=== PATIENT | male | born 1975 | race Caucasian/White ===

== ENCOUNTER 2017-12-07 20:24 | Emergency (ER) | payer MEDICARE ==
[~2017-12-07] VITALS: Ht 170.2 cm; Wt 65.0 kg
[~2017-12-07 20:24] MED LIST: ALBU1AER INH; CITA10TA4 PO; MONT10TA2 OR; PRED50 PO; ROBIDM5S PO; SIMV20TA PO; SYMB160A INH; VIST25CA PO
[2017-12-07 20:25] VITALS: BP 122/84; PULSE 100; RESP 16; TEMP 98.5; O2SAT 97
[2017-12-07] MEDS ORDERED: TUSSSUS2 PO (21:38)
[2017-12-07] MEDS ORDERED: NAPR250T4 PO (21:38)
[2017-12-07] MEDS ORDERED: SIMV20TA PO (21:38)
[2017-12-07] MEDS ORDERED: GUAISYP7 PO (21:38)
--- NOTE | 2017-12-07 21:44 | PD ---
HPI Chief Complaint: Cold / Flu Symptoms Time Seen by Provider: 21:20 Travel History International Travel<30 days: No Contact w/Intl Traveler<30days: No Traveled to known affect area: No History of Present Illness HPI Patient is a 42-year-old male presenting to the emergency department for evaluation of a cough, posttussive emesis, dizziness, and right lower back pain. Patient states the pain in his back has been present for 1 week, is in the right lower side. Pain is exacerbated with coughing. He does report a history of kidney stones, he denies any abdominal pain or dysuria. He has a history of seasonal allergies and chronic sinusitis, as well as asthma. He reports a chronic cough however for the last 2 days his symptoms have exacerbated. He vomited last night after coughing spell and again tonight at dinner. Family member is present with him and reports subjective low-grade fevers. Symptom onset was gradual, symptoms severity is moderate, there are no alleviating factors. Patient has been taking NyQuil, Robitussin DM and Tussionex. PFSH Past Medical History Arthritis: Yes (HANDS) Anxiety: Yes Depression: Yes Cardiac Catheterization: Yes (07/23 DR [facility]) High Cholesterol: Yes Chest Pain: Yes (ANXIETY) COPD: Yes Genitourinary: Yes Headaches: Yes Hypertension: Yes Kidney Stones: Yes Neurologic: Yes Psychiatric: Yes Migraines: Yes Seizures: Yes (POSSIBLE 1 YR AGO) Sleep Apnea: Yes Past Surgical History Cardiac Surgery: Yes (CATERIZED 2010 / CATH) Other Surgery: Yes (cleft palate , reconstructive sx) Family History Family Myocardial Infarction: Yes Social History Alcohol Use: No Tobacco Use: No Substance Use: No Allergies-Medications (Allergen,Severity, Reaction): Coded Allergies: penicillin G (Unverified Allergy, Mild, 12/07/17) codeine (Unverified Allergy, Unknown, 12/07/17) prochlorperazine (Unverified Allergy, Unknown, 12/07/17) Reported Meds & Prescriptions Reported Meds & Active Scripts Active Reported Naproxen 250 Mg Tab 250 Mg PO BID Tussionex Pennkinetic Ext 12 HR Liq (Hydrocodone-Chlorpheniramine 12 HR Liq) 10- 8 Mg/5 Ml Susp 5 Ml PO Q12H PRN Guaifenesin DM Liq (Guaifenesin-Dextromethorphan Liq) 10-100 Mg/5 Ml Liq 5 Ml PO Q4H PRN Simvastatin 20 Mg Tab 20 Mg PO HS Review of Systems Except as stated in HPI: all other systems reviewed are Neg General / Constitutional: Positive: Fever HENT: Positive: Vertigo, Rhinitis, Congestion, No: Headaches, Sore Throat Cardiovascular: No: Chest Pain or Discomfort Respiratory: Positive: Cough, No: Shortness of Breath, Wheezing, Hemoptysis, Pleuritic Pain Gastrointestinal: Positive: Vomiting, No: Nausea, Diarrhea, Abdominal Pain Genitourinary: No: Dysuria Musculoskeletal: Positive: Myalgias Neurologic: Positive: Dizziness Physical Exam Narrative GENERAL: Well-developed, well nourished, well-appearing male. Presenting in no acute distress. SKIN: Warm and dry. HEAD: Atraumatic. Normocephalic. EYES: Pupils equal and round. No scleral icterus. No injection or drainage. ENT: No nasal bleeding or discharge. Mucous membranes pink and moist. Cobblestone appearance posterior pharynx. NECK: Trachea midline. No JVD. CARDIOVASCULAR: Regular rate and rhythm. RESPIRATORY: No accessory muscle use. Clear to auscultation. Breath sounds equal bilaterally. GASTROINTESTINAL: Abdomen soft, non-tender, nondistended. Hepatic and splenic margins not palpable. MUSCULOSKELETAL: Extremities without clubbing, cyanosis, or edema. No obvious deformities. No CVAT bilaterally NEUROLOGICAL: Awake and alert. No obvious cranial nerve deficits. Motor grossly within normal limits. Five out of 5 muscle strength in the arms and legs. Normal speech. PSYCHIATRIC: Appropriate mood and affect; insight and judgment normal. Data Data Last Documented VS Vital Signs Date Time Temp Pulse Resp B/P (MAP) Pulse Ox O2 Delivery O2 Flow Rate FiO2 12/07/17 20:25 98.5 100 16 122/84 (97) 97 Room Air Orders Orders Chest, Pa & Lat (12/07/17 ) Urinalysis - C+S If Indicated (12/07/17 21:38) Complete Blood Count With Diff (12/07/17 21:45) Basic Metabolic Panel (Bmp) (12/07/17 21:45) Iv Access Insert/Monitor (12/07/17 21:45) Ecg Monitoring (12/07/17 21:45) Oximetry (12/07/17 21:45) Ondansetron Inj (Zofran Inj) (12/07/17 21:45) Sodium Chlor 0.9% 1000 Ml Inj (Ns 1000 M (12/07/17 21:45) Sodium Chloride 0.9% Flush (Ns Flush) (12/07/17 21:45) Labs Laboratory Tests Test 12/07/17 21:40 12/07/17 22:00 Urine Color YELLOW Urine Turbidity HAZY Urine pH 5.5 Urine Specific [place] 1.039 Urine Protein 100 mg/dL Urine Glucose (UA) NEG mg/dL Urine Ketones NEG mg/dL Urine Occult Blood TRACE Urine Nitrite NEG Urine Bilirubin NEG Urine Urobilinogen LESS THAN 2.0 MG/DL Urine Leukocyte Esterase NEG Urine RBC 1 /hpf Urine WBC 4 /hpf Urine Hyaline Casts 7 /lpf Urine Mucus MANY /lpf Microscopic Urinalysis Comment CULT NOT INDICATED White Blood Count 9.2 TH/MM3 Red Blood Count 5.30 MIL/MM3 Hemoglobin 15.7 GM/DL Hematocrit 44.9 % Mean Corpuscular Volume 84.7 FL Mean Corpuscular Hemoglobin 29.6 PG Mean Corpuscular Hemoglobin Concent 35.0 % Red Cell Distribution Width 13.8 % Platelet Count 225 TH/MM3 Mean Platelet Volume 9.8 FL Neutrophils (%) (Auto) 60.3 % Lymphocytes (%) (Auto) 23.9 % Monocytes (%) (Auto) 9.1 % Eosinophils (%) (Auto) 5.7 % Basophils (%) (Auto) 1.0 % Neutrophils # (Auto) 5.5 TH/MM3 Lymphocytes # (Auto) 2.2 TH/MM3 Monocytes # (Auto) 0.8 TH/MM3 Eosinophils # (Auto) 0.5 TH/MM3 Basophils # (Auto) 0.1 TH/MM3 CBC Comment DIFF FINAL Differential Comment Blood Urea Nitrogen 15 MG/DL Creatinine 1.24 MG/DL Random Glucose 75 MG/DL Calcium Level 9.6 MG/DL Sodium Level 140 MEQ/L Potassium Level 3.5 MEQ/L Chloride Level 102 MEQ/L Carbon Dioxide Level 31.0 MEQ/L Anion Gap 7 MEQ/L Estimat Glomerular Filtration Rate 64 ML/MIN MDM Medical Decision Making Medical Screen Exam Complete: Yes Emergency Medical Condition: Yes Interpretation(s) Last Impressions Chest X-Ray 12/07/17 0000 Signed Impressions: Service Date/Time: Thursday, December 07, 2017 21:51 - CONCLUSION: No acute cardiopulmonary abnormality is identified. Brenton Michelle MD Laboratory Tests Test 12/07/17 21:40 12/07/17 22:00 Urine Color YELLOW Urine Turbidity HAZY Urine pH 5.5 Urine Specific [place] 1.039 Urine Protein 100 mg/dL Urine Glucose (UA) NEG mg/dL Urine Ketones NEG mg/dL Urine Occult Blood TRACE Urine Nitrite NEG Urine Bilirubin NEG Urine Urobilinogen LESS THAN 2.0 MG/DL Urine Leukocyte Esterase NEG Urine RBC 1 /hpf Urine WBC 4 /hpf Urine Hyaline Casts 7 /lpf Urine Mucus MANY /lpf Microscopic Urinalysis Comment CULT NOT INDICATED White Blood Count 9.2 TH/MM3 Red Blood Count 5.30 MIL/MM3 Hemoglobin 15.7 GM/DL Hematocrit 44.9 % Mean Corpuscular Volume 84.7 FL Mean Corpuscular Hemoglobin 29.6 PG Mean Corpuscular Hemoglobin Concent 35.0 % Red Cell Distribution Width 13.8 % Platelet Count 225 TH/MM3 Mean Platelet Volume 9.8 FL Neutrophils (%) (Auto) 60.3 % Lymphocytes (%) (Auto) 23.9 % Monocytes (%) (Auto) 9.1 % Eosinophils (%) (Auto) 5.7 % Basophils (%) (Auto) 1.0 % Neutrophils # (Auto) 5.5 TH/MM3 Lymphocytes # (Auto) 2.2 TH/MM3 Monocytes # (Auto) 0.8 TH/MM3 Eosinophils # (Auto) 0.5 TH/MM3 Basophils # (Auto) 0.1 TH/MM3 CBC Comment DIFF FINAL Differential Comment Blood Urea Nitrogen 15 MG/DL Creatinine 1.24 MG/DL Random Glucose 75 MG/DL Calcium Level 9.6 MG/DL Sodium Level 140 MEQ/L Potassium Level 3.5 MEQ/L Chloride Level 102 MEQ/L Carbon Dioxide Level 31.0 MEQ/L Anion Gap 7 MEQ/L Estimat Glomerular Filtration Rate 64 ML/MIN Vital Signs Date Time Temp Pulse Resp B/P (MAP) Pulse Ox O2 Delivery O2 Flow Rate FiO2 12/07/17 20:25 98.5 100 16 122/84 (97) 97 Room Air Differential Diagnosis Bronchitis versus asthma exacerbation versus pneumonia versus electrolyte abnormality versus Narrative Course Patient is a 42-year-old male presenting for evaluation of cough, posttussive emesis, dizziness. Labs and imaging ordered and pending. Patient's vital signs are stable, he is afebrile. Labs reviewed, no acute findings identified. Urinalysis was assessed, it is not consistent with a urinary tract infection. Chest x-ray shows no acute disease. Patient's symptoms are likely related to an upper respiratory infection. Patient will be given prescriptions, he is encouraged to continue symptom management. He is encouraged to follow-up with primary care or at the [facility]. They were encouraged to return to emergency department for any new or worsening symptoms. Patient stable for discharge. Diagnosis Primary Impression: Upper respiratory infection Qualified Codes: J06.9 - Acute upper respiratory infection, unspecified Referrals: [facility] Primary Care Physician Patient Instructions: General Instructions, Upper Respiratory Infection (ED) Additional Instructions: Follow-up with a primary doctor or at the [facility] Continue symptom management as discussed Return to emergency department for any new or worsening symptoms Med/Other Pt SpecificInfo: Prescription(s) given Scripts Hydrocodone-Homatropine Liq (Hydrocodone-Homatropine Liq) 5-1.5 Mg/5 Ml Syrp 5 ML PO Q6H Y for COUGH, #120 ML 0 Refills Prov: Deedee Haque 12/07/17 Ipratropium Nasal (Ipratropium Nasal) 0.06% [place] 1 SPRAY EACH NARE QID, #1 BOTTLE 0 Refills Prov: Deedee Haque 12/07/17 Disposition: 01 DISCHARGE HOME Condition: Stable Deedee Haque Dec 07, 2017 21:44
[2017-12-07] MEDS ORDERED: ONDANSETRON HCL 4 MG/2 ML VIAL IV PUSH ONE (21:45)
[2017-12-07] MEDS ORDERED: SODIUM CHLOR 0.9% 1000 ML INJ 1,000 ML IV ONE (21:45)
[2017-12-07] MEDS ORDERED: SODIUM CHLORIDE 0.9% FLUSH 10 ML FLUSH IVF PRN (21:45)
--- NOTE | 2017-12-07 22:01 | RADRPT ---
EXAM DATE/TIME: 12/07/2017 21:51 [place] COMPARISON: No previous studies available for comparison. INDICATIONS : Cough. Nausea. MEDICAL HISTORY : None. SURGICAL HISTORY : None. ENCOUNTER: Initial ACUITY: 3 days PAIN SCORE: 7/10 LOCATION: Bilateral chest FINDINGS: PA and lateral views of the chest demonstrate a normal-sized cardiac silhouette. There is no effusion , consolidation, or pneumothorax. The bones and soft tissues demonstrate no acute abnormality. There is an azygous fissure. CONCLUSION: No acute cardiopulmonary abnormality is identified. Brenton Michelle MD on December 07, 2017 at 21:59 Board Certified Radiologist. This report was verified electronically.
[2017-12-07 22:43] LABS: BILIRUBIN, URINE NEG (NEG); BLOOD, URINE TRACE (NEG); GLUCOSE,URINE NEG (NEG); HYALINE CAST, URINE 7 /lpf (RARE); KETONE, URINE NEG (NEG); MUCUS URINE MANY /lpf (OCC); NITRITE,URINE NEG (NEG); PH, URINE 5.5 (5.0-8.5); URINE COLOR YELLOW (YELLW/STRAW); URINE LEUKOCYTE ESTERASE NEG (NEG)
[2017-12-07 22:47] LABS: AUTOMATED NEUTROPHIL # 5.5 TH/MM3 (1.8-7.7); BASOPHIL # 0.1 TH/MM3 (0-0.2); EOSINOPHIL # 0.5 TH/MM3 (0-0.4); EOSINOPHIL % 5.7 % (0.0-4.0); HEMATOCRIT 44.9 % (39.0-51.0); HEMOGLOBIN 15.7 GM/DL (13.0-17.0); LYMPH % 23.9 % (9.0-44.0); LYMPHOCYTE # 2.2 TH/MM3 (1.0-4.8); MEAN CELL VOLUME 84.7 FL (80.0-100.0); MEAN CORPUSCULAR HEMOGLOBIN 29.6 PG (27.0-34.0); MEAN PLATELET VOLUME 9.8 FL (7.0-11.0); MONO % 9.1 % (0.0-8.0); MONOCYTE # 0.8 TH/MM3 (0-0.9); NEUT % 60.3 % (16.0-70.0); PLATELET COUNT 225 TH/MM3 (150-450); RED CELL DISTRIBUTION WIDTH 13.8 % (11.6-17.2); WHITE BLOOD COUNT 9.2 TH/MM3 (4.0-11.0)
[2017-12-07 23:19] LABS: CALCIUM 9.6 MG/DL (8.5-10.1); CREATININE 1.24 MG/DL (0.60-1.30)
[2017-12-07] MEDS ORDERED: HYDR5SYP10 PO (23:37)
[2017-12-07] MEDS ORDERED: IPRA0.06 EACH NARE (23:37)
== END 2017-12-07 23:50 | disposition home or self-care (01) ==
LOC: NEPD 20:24
DX: J06.9 Acute upper respiratory infection, unspecified (principal); R42 Dizziness and giddiness; E78.00 Pure hypercholesterolemia, unspecified; J44.9 Chronic obstructive pulmonary disease, unspecified
CPT/HCPCS: 71046; 80048; 81001; 85025; 96360; 99284; J2405; J7030

== ENCOUNTER 2018-06-05 05:16 | Observation (INO) ==
[2018-06-05] MEDS ORDERED: Sod Chloride 0.9% Inj 1,000 ML IV.SIG ONE (05:44)
[2018-06-05 06:13] LABS: Baso # (Auto) 0.1 th/mm3 (0.0-0.2); Baso % (Auto) 0.8 % (0.0-2.0); Eos # (Auto) 0.4 th/mm3 (0.0-0.4); Eos % (Auto) 4.4 % (0.0-4.0); Hematocrit 41.6 % (39.0-51.0); Lymph # (Auto) 2.3 th/mm3 (1.0-4.8); Lymph % (Auto) 27.1 % (9.0-44.0); Mean Corpuscular HGB Conc 33.7 % (32.0-36.0); Mean Corpuscular Hemoglobin 28.7 pg (27.0-34.0); Mean Corpuscular Volume 85.2 fL (80.0-100.0); Mean Platelet Volume 9.6 fL (7.0-11.0); Mono # (Auto) 0.7 th/mm3 (0.0-0.9); Mono % (Auto) 8.2 % (0.0-8.0); Neut % (Auto) 59.5 % (16.0-70.0); Platelet Count 164 th/mm3 (150-450); Red Blood Count 4.88 mil/mm3 (4.50-5.90); Red Cell Distribution Width 14.3 % (11.6-17.2); White Blood Count 8.4 th/mm3 (4.0-11.0)
[2018-06-05 06:20] LABS: Alanine Aminotransferase 28 U/L (12-78); Albumin 3.9 g/dL (3.4-5.0); Anion Gap 10 meq/L (5-15); Aspartate Aminotransferase 14 U/L (15-37); Blood Urea Nitrogen 14 mg/dL (7-18); Calcium 9.1 mg/dL (8.5-10.1); Carbon Dioxide 26.5 meq/L (21.0-32.0); Chloride 105 meq/L (98-107); Glomerular Filtration Rate 69 mL/min (>89); Glucose,Random 119 mg/dL (74-106); Lipase 381 U/L (73-393); Potassium 3.2 meq/L (3.5-5.1); Sodium 141 meq/L (136-145)
[2018-06-05 06:22] LABS: Alkaline Phosphatase 117 U/L (45-117); Total Protein 7.5 g/dL (6.4-8.2)
[2018-06-05 06:32] LABS: Bacteria,Urine Rare /hpf; Bilirubin,Urine Negative (Negative); Clarity,Urine Clear (Clear); Color,Urine Yellow (Yellw/Straw); Glucose,Urine (UA) Negative (Negative); Leukocyte Esterase,Urine Negative (Negative); Mucus,Urine Few /lpf (Occasional); Nitrite,Urine Negative (Negative); Specific Gravity,Urine 1.014 (1.002-1.035)
--- NOTE | 2018-06-05 06:36 | CT ---
EXAM DATE: 06/05/2018 6:28 AM EDT AGE/SEX: 43 years / Male INDICATIONS: Headache for two days. CLINICAL DATA: This is the patient's initial encounter. Patient reports that signs and symptoms have been present for 2 days and indicates a pain score of 7/10. MEDICAL/SURGICAL HISTORY: Hypertension. None. RADIATION DOSE: 36.73 CTDI (mGy) COMPARISON: POI, CT BRAIN W/O CONTRAST, 12/30/2015. . TECHNIQUE: CT of the head without contrast. Using automated exposure control and adjustment of the mA and/or kV according to patient size, radiation dose was kept as low as reasonably achievable to ob tain optimal diagnostic quality images. DICOM format image data is available electronically for revi ew and comparison. FINDINGS: Cerebrum: The ventricles are normal for age. No evidence of midline shift, mass lesion, hemorrhage or acute infarction. No extraaxial fluid collections are seen. Posterior Fossa: The cerebellum and brainstem are intact. The 4th ventricle is midline. The cerebe llopontine angle is unremarkable. Extracranial: The visualized portion of the orbits is intact. Skull: The calvaria is intact. No evidence of skull fracture. CONCLUSION: 1. No acute intracranial abnormality. . Electronically signed by: Joel Austin MD 06/05/2018 6:35 AM EDT
--- NOTE | 2018-06-05 06:40 | ED ---
HPI General Chief Complaint: Abdominal Pain Stated Complaint: headache/n/v/d Time Seen by Provider: 06/05/18 05:48 Source: patient and family Mode of arrival: ambulatory Limitations: other (mental disability) History of Present Illness Complaint: headache Onset (ago): day(s) (few) Onset description: gradual Location: left and temporal Severity scale (1-10): 8 Quality: aching Relieving factors: nothing Exacerbating factors: none Context: other (History of hydrocephalus. He has undergone a craniotomy for the hydrocephalus. Sister warts that he nearly lost his vision because of the buildup of fluid in his brain.) Associated symptoms: nausea, vomiting and other (diarrhea) Related Data Home Medications Medication Instructions Recorded Confirmed [id number] 1 tab PO Q6H 06/05/18 06/05/18 montelukast 10 mg PO QPM 06/05/18 06/05/18 rosuvastatin 20 mg PO DAILY 06/05/18 06/05/18 trimethobenzamide 300 mg PO Q6H PRN 06/05/18 06/05/18 Allergies Allergy/AdvReac Type Severity Reaction Status Date / Time codeine Allergy Severe Anaphylaxis Verified 06/05/18 05:31 penicillin G Allergy Severe Anaphylaxis Verified 06/05/18 05:31 prochlorperazine Allergy Severe Anaphylaxis Verified 06/05/18 05:31 Review of Systems ROS: all other systems reviewed are negative [facility] Medical History Medical History [place] of tongue (Acute) COPD (chronic obstructive pulmonary disease) (Acute) Depression (Acute) HTN (hypertension) (Acute) Head ache (Acute) History of kidney stones (Acute) Hx of chest pain (Acute) Hx of corrected cleft lip and palate (Acute) Hyperlipidemia (Acute) Mental retardation (Acute) Normal colonoscopy (Acute) Sleep apnea with use of continuous positive airway pressure (CPAP) (Acute) Surgical History Surgical History H/O bone graft (Acute) H/O brain surgery (Acute) History of lingual frenulotomy (Acute) Family History Family History Other Diabetes mellitus Epilepsy Heart disease Lung cancer Osteoarthritis Stroke Social History Social History Substance History: No History of Abuse Second Hand Smoke Exposure: No Smoking Status: Never smoker How Often Do You Have a Drink Containing Alcohol: Monthly or less Recent Travel in [facility] within the Last 8 Weeks: No Recent Out of Country Travel within the Last 8 Weeks: No Immunization History Tetanus Immunization: <5 Years Tetanus Immunization Year if Known: 2016 Hx Influenza Vaccine This Season: No Exam Const General: cooperative, healthy appearing, comfortable, no acute distress, well developed and well groomed Orientation: alert, awake and oriented x3 [place]EN[place] Head: atraumatic and other (Healed surgical scars) Eyes Alignment and Position: alignment normal Conjunctivae: conjunctivae normal Sclera: sclerae normal EOM: EOM intact bilaterally Neck Neck: normal visual inspection and full ROM Chest Chest: normal inspection of the chest Resp Effort & Inspection: normal respiratory effort and able to speak in complete sentences Cardio Rate: regular rate Rhythm: regular rhythm Back/Spine/Pelvis Cervical Spine: cervical ROM normal Thoracic/Lumbar Spine: thoraco-lumbar ROM normal Skin General: no rashes or lesions noted, turgor normal and dry skin Neuro General: alert, awake, oriented x3, moves all extremities and CN's II-XI intact bilaterally Extrem General: normal to inspection and full ROM Psych Appearance: grossly normal Mental Status: mental status grossly normal Speech and Movement: speech and movement normal Mood: congruent mood Affect: normal affect Attitude: cooperative Thought Process: normal Thought Content: normal Judgment: judgment good Course Initial Documented Vital Signs Temperature 98.6 F 06/05/18 05:18 Pulse Rate 73 06/05/18 05:18 Respiratory Rate 18 06/05/18 05:18 Blood Pressure 144/91 H 06/05/18 05:18 Pulse Oximetry 98 06/05/18 05:18 Last Documented Vital Signs Temperature 98.0 F 06/05/18 14:45 Pulse Rate 68 06/05/18 14:45 Respiratory Rate 16 06/05/18 14:45 Blood Pressure 127/82 06/05/18 14:45 Pulse Oximetry 98 06/05/18 14:45 Sign Out Sign Out Data: Patient Sign Out occurred on 06/05/18 at 07:27. Patient's care was discussed, and care was transferred from Brook Garcia to Lamont Reyez MD. Sign Out Comment: This patient is signed out at 7 AM pending the results of his CT as well as response to treatment for headache associated with nausea and vomiting. Laboratory evaluation is negative. Last updated by Brook Garcia at 06/05/18 06:41 Post-Handoff Eval: Patient was signed to me at change of shift by Dr. Garcia. Initially, patient was awaiting CT results. At change of shift, the CT results were completed. CT results show no evidence of acute process. Dr. Garcia went into evaluate the patient and the patient was still having headache and was still nauseous and had another episode of vomiting. She is recommending that we admit the patient with a neuro consult. [facility]. Medical Decision Making MDM Narrative Medical decision making narrative: This is a patient who has had previous hydrocephalus status post craniotomy who presents with a chief complaint of headache associated with vomiting and diarrhea. He is neurologically intact. He is afebrile. His neck is supple. His headache will be treated with IV Reglan and Benadryl. CT of the head is pending as our baseline labs. Medical Screen Exam Complete: Yes Emergency Medical Condition: Yes Differential Diagnosis Differential Diagnosis: Differential diagnosis of headache includes but is not limited to migraine, muscle contraction headache, brain tumor, brain bleed Medical Records Medical records reviewed: Yes I reviewed the patient's medical records. Lab Data Lab results reviewed: Yes I reviewed the patient's lab results. Result diagrams: 06/05/18 05:50 06/05/18 05:50 Lab Results 06/05/18 06/05/18 06/05/18 Range/Units 05:50 05:50 06:10 WBC 8.4 (4.0-11.0) th/mm3 RBC 4.88 (4.50-5.90) mil/mm3 Hgb 14.0 (13.0-17.0) gm/dL Hct 41.6 (39.0-51.0) % MCV 85.2 (80.0-100.0) fL MCH 28.7 (27.0-34.0) pg MCHC 33.7 (32.0-36.0) % RDW 14.3 (11.6-17.2) % Plt Count 164 (150-450) th/mm3 MPV 9.6 (7.0-11.0) fL Neut % (Auto) 59.5 (16.0-70.0) % Lymph % (Auto) 27.1 (9.0-44.0) % [place] % (Auto) 8.2 H (0.0-8.0) % Eos % (Auto) 4.4 H (0.0-4.0) % Baso % (Auto) 0.8 (0.0-2.0) % Neut # (Auto) 5.0 (1.8-7.7) th/mm3 Lymph # (Auto) 2.3 (1.0-4.8) th/mm3 [place] # (Auto) 0.7 (0.0-0.9) th/mm3 Eos # (Auto) 0.4 (0.0-0.4) th/mm3 Baso # (Auto) 0.1 (0.0-0.2) th/mm3 WBC Differential . Differential Comment Auto diff final Sodium 141 (136-145) meq/L Potassium 3.2 L (3.5-5.1) meq/L Chloride 105 (98-107) meq/L Carbon Dioxide 26.5 (21.0-32.0) meq/L Anion Gap 10 (5-15) meq/L BUN 14 (7-18) mg/dL Creatinine 1.16 (0.60-1.30) mg/dL Estimated GFR 69 L (>89) mL/min Random Glucose 119 H (74-106) mg/dL Calcium 9.1 (8.5-10.1) mg/dL Total Bilirubin 0.3 (0.2-1.0) mg/dL AST 14 L (15-37) U/L ALT 28 (12-78) U/L Alkaline Phosphatase 117 (45-117) U/L Total Protein 7.5 (6.4-8.2) g/dL Albumin 3.9 (3.4-5.0) g/dL Lipase 381 (73-393) U/L Urine Color Yellow (Yellw/Straw) Urine Clarity Clear (Clear) Urine pH 6.0 (5.0-8.5) Ur Specific [place] 1.014 (1.002-1.035) Urine Protein Negative (Neg-Trace) mg/dL Urine Glucose (UA) Negative (Negative) mg/dL Urine Ketones Negative (Negative) mg/dL Urine Occult Blood Negative (Negative) Urine Nitrate Negative (Negative) Urine Bilirubin Negative (Negative) Urine Urobilinogen Less than 2 (Less than 2) mg/dL Ur Leukocyte Esterase Negative (Negative) Urine RBC 1 (0-3) /hpf Urine WBC 1 (0-5) /hpf Urine Bacteria Rare H (None) /hpf Urine Mucus Few H (Occasional) /lpf Micro UA Comment Culture not ind Ur Microscopic Review Not Reportable Urine Culture Comments Culture not ind Imaging Data Radiologist's impression: Head CT 06/05/18 06:07 CONCLUSION: 1. No acute intracranial abnormality. . Discharge Plan Discharge Disposition Patient Disposition: 30 Still Patient Discharge Details Diagnosis: Intractable headache, Nausea and vomiting, History of hydrocephalus Physicians Team ED Provider: Lamont Reyez Primary Care Provider: UNKNOWN, Attending Provider: Maynor Bob Other Providers: Armond Lehman Status ED Status: Left Department Discharge Information Discharge Date/Time: 06/05/18 14:51
--- NOTE | 2018-06-05 09:23 | P.HPIM ---
History of Present Illness Primary Care Physician: UNKNOWN History of Present Illness: Mr. Larson is a 43-year-old male. He has a past history of hydrocephalus. Chronic cognitive deficit is present at baseline. Mr. Larson is here due to symptoms of headache with nausea and vomiting. He also reports diarrhea. This could represent a gastroenteritis with secondary headache. However given his history of hydrocephalus it is possible that he has an exacerbation of his hydrocephalus which is causing his headache and nausea. Poor p.o. intake has been present recently and he is slightly dehydrated. No other complaints today. No fevers. - Diagnosis (1) Intractable headache (2) Nausea and vomiting (3) History of hydrocephalus Review of Systems Constitutional: No fevers, no chills no night sweats, no fatigue, no weakness Eyes: No eye pain, no blurry vision, no loss of vision ENT: No sore throat, no ear pain, no rhinorrhea Cardiovascular: No chest pain, no tachycardia, no palpitations, no shortness of breath, no syncope Respiratory: No wheezing, no cough, no shortness of breath Gastrointestinal: No abdominal pain, no black tarry stools, no bright red blood per rectum, nausea, vomiting, diarrhea Musculoskeletal: No joint pain, no muscle cramps, no stiffness Integumentary: No rash, no ulcers, no drainage Neurologic: No sensory loss, no loss of motor function, no dizziness, headache Psychiatric: No behavioral changes, no hallucinations, no suicidal ideations PMFSH - History History Provided By: Patient - Medical History Medical History: Medical History (Last Reviewed 06/05/18 @ 06:36 by Brook Garcia) Depression HTN (hypertension) Head ache History of kidney stones Hx of chest pain Hx of corrected cleft lip and palate Hyperlipidemia Mental retardation - Surgical History Surgical History: Surgical History (Last Reviewed 06/05/18 @ 06:36 by Brook Garcia) H/O bone graft H/O brain surgery - Family History Family History: Family History (Last Updated 06/05/18 @ 09:20 by Maynor Bob MD) Other Osteoarthritis - Tobacco History Second Hand Smoke Exposure: No Smoking Status: Never smoker - Alcohol History How Often Do You Have a Drink Containing Alcohol: Never - Substance Use History Substance History: No History of Abuse - Travel History Recent Travel in the [place] Within the Last 8 Weeks: No Recent Travel Out of the Country Within the Last 8 Weeks: No - Immunization History Tetanus Immunization: <5 Years Tetanus Immunization Year if Known: 2015 Hx Influenza Vaccine This Season: No Medications and Allergies Active Medications: Active Medications Al Hydroxide/Mg Hydroxide (Milk Of [place]) 30 ml PO Q12H PRN PRN Reason: Mild Constipation Sodium Chloride (Ns Inj) 1,000 mls @ 50 mls/hr IV.CONT .Q20H [facility] Sodium Chloride (Ns Flush) 2 ml IV.FLUSH PRN PRN PRN Reason: FLUSH AFTER USING IV ACCESS Allergies Allergy/AdvReac Type Severity Reaction Status Date / Time codeine Allergy Severe Anaphylaxis Verified 06/05/18 05:31 penicillin G Allergy Severe Anaphylaxis Verified 06/05/18 05:31 prochlorperazine Allergy Severe Anaphylaxis Verified 06/05/18 05:31 Home Medications Medication Instructions Recorded Confirmed Type [id number]-lsvademn 1 tab PO Q6H 06/05/18 06/05/18 History montelukast 10 mg PO QPM 06/05/18 06/05/18 History rosuvastatin 20 mg PO DAILY 06/05/18 06/05/18 History trimethobenzamide 300 mg PO Q6H PRN 06/05/18 06/05/18 History Exam Vital signs: Vital Signs 06/05/18 05:18 06/05/18 05:35 Temperature 98.6 F Pulse Rate 73 68 Respiratory Rate 18 20 Blood Pressure 144/91 H 143/87 H Pulse Oximetry 98 98 Narrative: GENERAL: NAD, A&Ox3, decreased cognition at baseline HEAD: Normocephalic. NECK: Supple, trachea midline. No lymphadenopathy. EYES: No scleral icterus. No injection or drainage. CARDIOVASCULAR: Regular rate and rhythm without murmurs, gallops, or rubs. RESPIRATORY: Breath sounds equal bilaterally. No accessory muscle use. GASTROINTESTINAL: Abdomen soft, non-tender, nondistended. MUSCULOSKELETAL: No cyanosis, or edema. SKIN: Warm and dry. NEURO: No focal neurological deficits. Results - Labs CBC & Chem 7: 06/05/18 05:50 06/05/18 05:50 Labs: Short CBC 06/05/18 Range/Units 05:50 WBC 8.4 (4.0-11.0) th/mm3 Hgb 14.0 (13.0-17.0) gm/dL Hct 41.6 (39.0-51.0) % Plt Count 164 (150-450) th/mm3 BMP 06/05/18 05:50 Sodium 141 Potassium 3.2 L Chloride 105 Carbon Dioxide 26.5 BUN 14 Creatinine 1.16 Calcium 9.1 Liver Function 06/05/18 Range/Units 05:50 Total Bilirubin 0.3 (0.2-1.0) mg/dL AST 14 L (15-37) U/L ALT 28 (12-78) U/L Alkaline Phosphatase 117 (45-117) U/L Albumin 3.9 (3.4-5.0) g/dL Urine 06/05/18 Range/Units 06:10 Urine Color Yellow (Yellw/Straw) Urine Clarity Clear (Clear) Urine pH 6.0 (5.0-8.5) Ur Specific [place] 1.014 (1.002-1.035) Urine Protein Negative (Neg-Trace) mg/dL Urine Glucose (UA) Negative (Negative) mg/dL - Imaging Impressions Head CT 06/05/18 06:07 CONCLUSION: 1. No acute intracranial abnormality. . Caprini VTE Risk Assessment Caprini VTE Risk Assessment: No/Low Risk (score <= 1) Caprini Risk Assessment Model: Point Value = 1 Point Value = 2 Point Value = 3 Point Value = 5 Age 41-60 Minor surgery BMI > 25 kg/m2 Swollen legs Varicose veins or History of unexplained or recurrent spontaneous Oral contraceptives or hormone replacement Sepsis (< 1 month) Serious lung disease, including pneumonia (< 1 month) Abnormal pulmonary function Acute myocardial infarction Congestive heart failure (< 1 month) History of inflammatory bowel disease Medical patient at bed rest Age 61-74 Arthroscopic surgery Major open surgery (> 45 min) Laparoscopic surgery (> 45 min) Malignancy Confined to bed (> 72 hours) Immobilizing plaster cast Central venous access Age >= 75 History of VTE Family history of VTE Factor V Leiden Prothrombin [id number] Lupus anticoagulant Anticardiolipin antibodies Elevated serum homocysteine Heparin-induced thrombocytopenia Other congenital or acquired thrombophilia Stroke (< 1 month) Elective arthroplasty Hip, pelvis, or leg fracture Acute spinal cord injury (< 1 month) Prophylaxis Regimen: Total Risk Factor Score Risk Level Prophylaxis Regimen 0-1 Low Early ambulation 2 Moderate Order ONE of the following: *Sequential Compression Device (SCD) *Heparin 5000 units SQ BID 3-4 Higher Order ONE of the following medications: *Heparin 5000 units SQ TID *Enoxaparin/Lovenox 40 mg SQ daily (WT < 150 kg, CrCl > 30 mL/min) *Enoxaparin/Lovenox 30 mg SQ daily (WT < 150 kg, CrCl > 10-29 mL/min) *Enoxaparin/Lovenox 30 mg SQ BID (WT < 150 kg, CrCl > 30 mL/min) AND/OR *Sequential Compression Device (SCD) 5 or more Highest Order ONE of the following medications: *Heparin 5000 units SQ TID (Preferred with Epidurals) *Enoxaparin/Lovenox 40 mg SQ daily (WT < 150 kg, CrCl > 30 mL/min) *Enoxaparin/Lovenox 30 mg SQ daily (WT < 150 kg, CrCl > 10-29 mL/min) *Enoxaparin/Lovenox 30 mg SQ BID (WT < 150 kg, CrCl > 30 mL/min) AND *Sequential Compression Device (SCD) Assessment and Plan - Assessment (1) Intractable headache Code(s): R51 - Headache Status: Acute (2) Nausea and vomiting Code(s): R11.2 - Nausea with vomiting, unspecified Status: Acute (3) History of hydrocephalus Code(s): Z86.69 - Personal history of other diseases of the nervous system and sense organs Status: Acute - Plan 43-year-old male admitted secondary to severe headache with history of hydrocephalus History of hydrocephalus Acute headache Monitor to ensure no etiology of hydrocephalus Potential etiology is gastroenteritis with dehydration Neurology consulted for further input Nausea/vomiting Diarrhea Zofran as needed IV hydration Monitor for improvement Hypertension Continue baseline treatment Follow blood pressures Adjust treatments as needed Hyperlipidemia Continue present treatment Follow as an outpatient DVT prophylaxis SCDs (1) Intractable headache Qualifiers: Headache type: unspecified Headache chronicity pattern: acute headache Qualified Code(s): R51 - Headache (2) Nausea and vomiting Qualifiers: Vomiting type: unspecified Vomiting Intractability: intractable Qualified Code(s): R11.2 - Nausea with vomiting, unspecified
[2018-06-05] MEDS: Sod Chloride 0.9% Inj 1,000 ML IV.CONT SCH (09:37)
[2018-06-05] MEDS ORDERED: MethylPREDNISolone Sod Succinate Inj 40 MG/ML Vial IV.PUSH ONE (13:00)
[2018-06-05] MEDS: Butalbital/APAP/Caff 50/325/40 MG Tablet PO PRN (17:13)
--- NOTE | 2018-06-05 19:53 | MB ---
cc: Armond Lehman MD, PhD DATE: 06/05/2018 REASON FOR CONSULTATION: Headache. HISTORY OF PRESENT ILLNESS: This is a 43-year-old man with a history of hydrocephalus with a shunt placed about 15 months ago. Also, he has had extensive facial reconstructive surgery as well. He has a long history of headaches for the past 15-20 years, which has been increasing, describes the pain as being in the occipital area then radiating to the parietal areas bilaterally. It has escalated to a 10 on a scale of 1-10. He has photosensitivity as well. He had no focal deficits. PAST MEDICAL HISTORY: As noted above. Also, has a history of kidney stones, hypertension and depression. NEUROLOGICAL EXAMINATION: VITAL SIGNS: His blood pressure is 127/82, pulse 68, respiratory rate 16, temperature 98 degrees. HIGHER CORTICAL FUNCTION: He is alert and oriented. Speech is normal. Neck is supple. Cranial nerves intact. He has no occipital tenderness. Motor exam is normal. IMAGING: CT of the brain: The ventricular size is within normal limits. There is no evidence of hydrocephalus. Overall normal CT brain. LABORATORY DATA: White count 8400, hemoglobin 14, hematocrit 41%, platelet count 164,000. Sodium is 141, potassium 3.2, chloride 105, CO2 26.5, BUN is 14, creatinine 1.16, GFR 60, glucose 119. AST 14, ALT is 28. IMPRESSION: 1. History of hydrocephalus. At the present time, there is no sign of any hydrocephalus. 2. Intractable headaches. These may be vascular headaches; however, I would like to get lumbar puncture to measure the opening pressure and check CSF studies, rule out inflammatory etiology. Also, start Elavil for his headaches. Armond Lehman MD, PhD ALFONSO/lovely/evy , 06:22 PM , 06:30 PM
[2018-06-05] MEDS ORDERED: MethylPREDNISolone Sod Succinate Inj 40 MG/ML Vial IV.PUSH SCH (22:00)
[2018-06-06] MEDS: Butalbital/APAP/Caff 50/325/40 MG Tablet PO PRN ×2 (01:44→18:21)
[2018-06-06] MEDS: Sod Chloride 0.9% Inj 1,000 ML IV.CONT SCH (04:39)
[2018-06-06 07:33] LABS: Baso # (Auto) 0.1 th/mm3 (0.0-0.2); Baso % (Auto) 1.2 % (0.0-2.0); Eos # (Auto) 0.4 th/mm3 (0.0-0.4); Hematocrit 39.6 % (39.0-51.0); Hemoglobin 13.2 gm/dL (13.0-17.0); Lymph # (Auto) 1.9 th/mm3 (1.0-4.8); Lymph % (Auto) 27.3 % (9.0-44.0); Mean Corpuscular HGB Conc 33.5 % (32.0-36.0); Mean Corpuscular Hemoglobin 28.8 pg (27.0-34.0); Mean Corpuscular Volume 86.2 fL (80.0-100.0); Mean Platelet Volume 9.5 fL (7.0-11.0); Mono # (Auto) 0.5 th/mm3 (0.0-0.9); Mono % (Auto) 7.3 % (0.0-8.0); Neut # (Auto) 4.1 th/mm3 (1.8-7.7); Neut % (Auto) 58.2 % (16.0-70.0); Platelet Count 170 th/mm3 (150-450); Red Blood Count 4.59 mil/mm3 (4.50-5.90); Red Cell Distribution Width 13.8 % (11.6-17.2); White Blood Count 7.1 th/mm3 (4.0-11.0)
[2018-06-06 07:50] LABS: Alanine Aminotransferase 23 U/L (12-78); Albumin 3.3 g/dL (3.4-5.0); Alkaline Phosphatase 99 U/L (45-117); Anion Gap 5 meq/L (5-15); Aspartate Aminotransferase 17 U/L (15-37); Blood Urea Nitrogen 8 mg/dL (7-18); Calcium 8.2 mg/dL (8.5-10.1); Carbon Dioxide 30.9 meq/L (21.0-32.0); Chloride 110 meq/L (98-107); Glomerular Filtration Rate 64 mL/min (>89); Glucose,Random 110 mg/dL (74-106); Potassium 3.5 meq/L (3.5-5.1); Sodium 146 meq/L (136-145); Total Protein 6.6 g/dL (6.4-8.2)
[2018-06-06 10:20] LABS: Prothrombin Time 9.7 sec (9.8-11.6)
[2018-06-06 13:17] LABS: Total Protein,CSF 52.7 mg/dL (15.0-45.0)
[2018-06-06 13:44] LABS: Lymphocytes, CSF 73 %; Monocytes,CSF 27 %; Neutrophils,CSF 0 %
--- NOTE | 2018-06-06 15:18 | P.PN ---
Subjective Interval history: seen with sister at bedside right handed male states came in for headacghe "was so bad" currently afppears comfortable, states slight left sided headaches, now eating - tolerting po well- no fever or chills no further nausea or vomiting Physical Exam Vital signs: Vital Signs 06/05/18 20:00 06/06/18 00:00 06/06/18 04:00 Temperature 98 F 98.2 F 97.6 F Pulse Rate 88 77 75 Respiratory Rate 18 18 18 Blood Pressure 110/71 119/79 128/82 Pulse Oximetry 97 95 98 06/06/18 11:24 06/06/18 12:46 Temperature 98.2 F 98.5 F Pulse Rate 72 77 Respiratory Rate 20 18 Blood Pressure 118/84 120/70 Pulse Oximetry 98 Intake & Output 06/05/18 06/06/18 06/06/18 18:59 06:59 18:59 Intake Total 1000 / 1000 1000 / 1000 Balance 1000 / 1000 1000 / 1000 Weight 74.5 kg Intake: IV 1000 / 1000 1000 / 1000 NS Inj 1,000 ML @ 50 mls/hr IV. 1000 / 1000 CONT .Q20H [facility] Rx#:[id number] NS Inj 1,000 ML @ Wide Open IV. 1000 / 1000 SIG BOLUS ONE Rx#:[id number] Other: Date of Last Bowel Movement 06/05/18 Weight On Admission 74.5 kg Narrative: awake adn alert, oriented x 3, speech slow but clear anciteric, pupiles equal neck supple no nuchal rigdiity lungs- no rales regular rhythm abdomen soft, nontender extremities no edema neuro exam- non focal, gait steady Results - Labs CBC & Chem 7: 06/06/18 06:25 06/06/18 06:25 Laboratory Results - last 24 hr 06/06/18 06/06/18 06/06/18 06:25 06:25 09:14 WBC 7.1 RBC 4.59 Hgb 13.2 Hct 39.6 MCV 86.2 MCH 28.8 MCHC 33.5 RDW 13.8 Plt Count 170 MPV 9.5 Neut % (Auto) 58.2 Lymph % (Auto) 27.3 [place] % (Auto) 7.3 Eos % (Auto) 6.0 H Baso % (Auto) 1.2 Neut # (Auto) 4.1 Lymph # (Auto) 1.9 [place] # (Auto) 0.5 Eos # (Auto) 0.4 Baso # (Auto) 0.1 WBC Differential . Differential Comment Auto diff final PT 9.7 L INR 1.0 Sodium 146 H Potassium 3.5 Chloride 110 H Carbon Dioxide 30.9 Anion Gap 5 BUN 8 Creatinine 1.24 Estimated GFR 64 L Random Glucose 110 H Calcium 8.2 L D Total Bilirubin Less than 0.1 L AST 17 ALT 23 Alkaline Phosphatase 99 Total Protein 6.6 D Albumin 3.3 L D CSF Neutrophils % CSF Lymphocytes % CSF Monocytes % CSF Glucose CSF Total Protein 06/06/18 06/06/18 12:37 12:37 WBC RBC Hgb Hct MCV MCH MCHC RDW Plt Count MPV Neut % (Auto) Lymph % (Auto) [place] % (Auto) Eos % (Auto) Baso % (Auto) Neut # (Auto) Lymph # (Auto) [place] # (Auto) Eos # (Auto) Baso # (Auto) WBC Differential Differential Comment PT INR Sodium Potassium Chloride Carbon Dioxide Anion Gap BUN Creatinine Estimated GFR Random Glucose Calcium Total Bilirubin AST ALT Alkaline Phosphatase Total Protein Albumin CSF Neutrophils % 0 CSF Lymphocytes % 73 CSF Monocytes % 27 CSF Glucose 64 CSF Total Protein 52.7 H Microbiology 06/06/18 12:37 Lumbar Puncture Gram Stain - Final Assessment and Plan - Assessment (1) Intractable headache Code(s): R51 - Headache Status: Acute (2) Nausea and vomiting Code(s): R11.2 - Nausea with vomiting, unspecified Status: Acute (3) History of hydrocephalus Code(s): Z86.69 - Personal history of other diseases of the nervous system and sense organs Status: Acute - Plan 43-year-old male admitted secondary to severe headache with history of hydrocephalus here for Acute headache- clinically improved S/P LP History of chrionic ehadaches - Dr. Lehman ff - CSF fluid- appears benign - continue on his Elavil Nausea/vomiting _ improved Diarrhea Zofran as needed IV hydration Monitor for improvement Hypertension- good on no meds Continue baseline treatment Follow blood pressures Adjust treatments as needed Hyperlipidemia Continue present treatment Follow as an outpatient History of multiple cleft lip surgeries.revisions- ff by Dr. Coto as OP DVT prophylaxis SCDs- up and ambualte d/w sister- wants to see and speak with Dr Lehman before being discharged DC if cleared [facility] neurology (1) Intractable headache Qualifiers: Headache type: unspecified Headache chronicity pattern: acute headache Qualified Code(s): R51 - Headache (2) Nausea and vomiting Qualifiers: Vomiting type: unspecified Vomiting Intractability: intractable Qualified Code(s): R11.2 - Nausea with vomiting, unspecified
--- NOTE | 2018-06-06 15:44 | IR ---
EXAM DATE: 06/06/2018 2:55 PM EDT AGE/SEX: 43 years / Male INDICATIONS: Patient with history of hydrocephalus presents with headache in need of lumbar puncture . CLINICAL DATA: This is the patient's initial encounter. Patient reports that signs and symptoms have been present for > 1 year and indicates a pain score of 0/10. MEDICAL/SURGICAL HISTORY: Hypertension. Hypercholesterolemia. Hydrocephalus, Kidney stones, Cl eft lip and palate, Headache . Brain surgery, Bone graft, Facial reconstructive surgery, Shunt 15 mo nths ago COMPARISON: No prior exams available for comparison. FLUORO TIME (min): 0.14 IMAGE SERIES: 1 ACCESS SITE: L3-4 LUMBAR PUNCTURE TIME: 1237 hours FLUID: Total volume of 17 cc of clear fluid was removed. . . PROCEDURE: 1. Fluoroscopic guided lumbar puncture. The risks, benefits and alternatives to the procedure were explained and verbal and written consent w as obtained. The site was prepped in sterile fashion. Full sterile technique was used, including ca p, mask, sterile gloves and gown and a large sterile sheet. Hand hygiene and 2% chlorhexidine and/or betadine/alcohol prep was utilized per protocol for cutaneous antisepsis. The skin and subcutaneous tissues were infiltrated with local anesthetic solution. With fluoroscopic guidance the lumbar thecal sac was punctured at the level above. The fluid describ ed above was removed without difficulty. The patient tolerated the procedure well and there were no complications. CONCLUSION: 1. Uncomplicated fluoroscopically guided lumbar puncture. Electronically signed by: Rowdy Zavala MD 06/06/2018 3:43 PM EDT
--- NOTE | 2018-06-06 19:46 | P.PNNEU ---
Subjective Subjective Comments: Headache is better . Tolerating elavil Active Medications: Active Medications Acetaminophen/Butalbital/Caffeine (Fioricet 50-325-40) 1 tab PO Q6H PRN PRN Reason: HEADACHE Last Admin: 06/06/18 18:21 Dose: 1 tab Al Hydroxide/Mg Hydroxide (Milk Of Magnesia Liq) 30 ml PO Q12H PRN PRN Reason: Mild Constipation Amitriptyline HCl (Elavil) 75 mg PO HS [facility] Last Admin: 06/05/18 22:39 Dose: 75 mg Sodium Chloride (Ns Inj) 1,000 mls @ 50 mls/hr IV.CONT .Q20H [facility] Last Admin: 06/06/18 04:39 Dose: 50 mls/hr Lorazepam (Ativan Inj) 1 mg IV.PUSH Q4H PRN PRN Reason: ANXIETY Sodium Chloride (Ns Flush) 2 ml IV.FLUSH PRN PRN PRN Reason: FLUSH AFTER USING IV ACCESS Allergies/Adverse Reactions: Allergies Allergy/AdvReac Type Severity Reaction Status Date / Time codeine Allergy Severe Anaphylaxis Verified 06/05/18 05:31 penicillin G Allergy Severe Anaphylaxis Verified 06/05/18 05:31 prochlorperazine Allergy Severe Anaphylaxis Verified 06/05/18 05:31 Physical Exam Vital signs: Vital Signs 06/05/18 20:00 06/06/18 00:00 06/06/18 04:00 Temperature 98 F 98.2 F 97.6 F Pulse Rate 88 77 75 Respiratory Rate 18 18 18 Blood Pressure 110/71 119/79 128/82 Pulse Oximetry 97 95 98 06/06/18 11:24 06/06/18 12:46 06/06/18 16:39 Temperature 98.2 F 98.5 F 98.6 F Pulse Rate 72 77 70 Respiratory Rate 20 18 20 Blood Pressure 118/84 120/70 122/68 Pulse Oximetry 98 96 Intake & Output 06/06/18 06/06/18 06/07/18 06:59 18:59 06:59 Intake Total 1000 / 1000 Balance 1000 / 1000 Intake: IV 1000 / 1000 NS Inj 1,000 ML @ 50 mls/hr IV. 1000 / 1000 CONT .Q20H [facility] Rx#:[id number] Other: Date of Last Bowel Movement 06/05/18 - Routine Neurological Exam alert, oriented, speech normal CN intact Motor no focal deficits Objective Laboratory Results - last 24 hr 06/06/18 06/06/18 06/06/18 06:25 06:25 09:14 WBC 7.1 RBC 4.59 Hgb 13.2 Hct 39.6 MCV 86.2 MCH 28.8 MCHC 33.5 RDW 13.8 Plt Count 170 MPV 9.5 Neut % (Auto) 58.2 Lymph % (Auto) 27.3 [place] % (Auto) 7.3 Eos % (Auto) 6.0 H Baso % (Auto) 1.2 Neut # (Auto) 4.1 Lymph # (Auto) 1.9 [place] # (Auto) 0.5 Eos # (Auto) 0.4 Baso # (Auto) 0.1 WBC Differential . Differential Comment Auto diff final PT 9.7 L INR 1.0 Sodium 146 H Potassium 3.5 Chloride 110 H Carbon Dioxide 30.9 Anion Gap 5 BUN 8 Creatinine 1.24 Estimated GFR 64 L Random Glucose 110 H Calcium 8.2 L D Total Bilirubin Less than 0.1 L AST 17 ALT 23 Alkaline Phosphatase 99 Total Protein 6.6 D Albumin 3.3 L D CSF Neutrophils % CSF Lymphocytes % CSF Monocytes % CSF Glucose CSF Total Protein 06/06/18 06/06/18 12:37 12:37 WBC RBC Hgb Hct MCV MCH MCHC RDW Plt Count MPV Neut % (Auto) Lymph % (Auto) [place] % (Auto) Eos % (Auto) Baso % (Auto) Neut # (Auto) Lymph # (Auto) [place] # (Auto) Eos # (Auto) Baso # (Auto) WBC Differential Differential Comment PT INR Sodium Potassium Chloride Carbon Dioxide Anion Gap BUN Creatinine Estimated GFR Random Glucose Calcium Total Bilirubin AST ALT Alkaline Phosphatase Total Protein Albumin CSF Neutrophils % 0 CSF Lymphocytes % 73 CSF Monocytes % 27 CSF Glucose 64 CSF Total Protein 52.7 H Microbiology 06/06/18 12:37 Gram Stain - Final Lumbar Puncture Review/Management - Diagnosis (1) Intractable headache Code(s): R51 - Headache Status: Acute Current Visit: Yes (2) History of hydrocephalus Code(s): Z86.69 - Personal history of other diseases of the nervous system and sense organs Status: Acute Current Visit: Yes - Review/Management Plan: csf normal except slight elevation in protein. No sign of infection RBC was 2, wbc 5 [place] is most likely migraine Recommend --continue elavil. Ok to dc from neuro standpoint tomorrow if stable and follow up with me in office in 2 weeks (1) Intractable headache Qualifiers: Headache type: unspecified Headache chronicity pattern: acute headache Qualified Code(s): R51 - Headache
[2018-06-06 19:56] LABS: RBC on Tube 4 2 /mm3
[2018-06-07] MEDS: Sod Chloride 0.9% Inj 1,000 ML IV.CONT SCH (05:30)
[2018-06-07 07:48] VITALS: BP 124/81; PULSE 66; RESP 16; TEMP 98; O2SAT 97
[2018-06-07] MEDS: Butalbital/APAP/Caff 50/325/40 MG Tablet PO PRN (08:14)
--- NOTE | 2018-06-07 09:08 | P.PN ---
Subjective Interval history: seen with sister at bedside patient awake and alert no complains of headaches, nausea or vomtiing had a good night Physical Exam Vital signs: Vital Signs 06/06/18 11:24 06/06/18 12:46 06/06/18 16:39 Temperature 98.2 F 98.5 F 98.6 F Pulse Rate 72 77 70 Respiratory Rate 20 18 20 Blood Pressure 118/84 120/70 122/68 Pulse Oximetry 98 96 06/06/18 20:56 06/07/18 00:30 06/07/18 05:06 Temperature 98.1 F 98.3 F 98.7 F Pulse Rate 80 68 73 Respiratory Rate 20 18 21 Blood Pressure 120/86 127/84 113/80 Pulse Oximetry 96 96 06/07/18 07:47 Temperature 98.0 F Pulse Rate 66 Respiratory Rate 16 Blood Pressure 124/81 Pulse Oximetry 97 Intake & Output 06/06/18 06/07/18 06/07/18 18:59 06:59 18:59 Intake Total 1000 / 1000 Balance 1000 / 1000 Intake: IV 1000 / 1000 NS Inj 1,000 ML @ 50 mls/hr IV. 1000 / 1000 CONT .Q20H [facility] Rx#:[id number] Other: Date of Last Bowel Movement 06/06/18 Narrative: awake adn alert, oriented x 3, speech clear anciteric, pupiles equal neck supple no nuchal rigdiity lungs- no rales regular rhythm abdomen soft, nontender extremities no edema neuro exam- non focal, gait steady Results - Labs CBC & Chem 7: 06/06/18 06:25 06/06/18 06:25 Laboratory Results - last 24 hr 06/06/18 06/06/18 06/06/18 09:14 12:37 12:37 PT 9.7 L INR 1.0 CSF WBC (4) 5 CSF RBC (4) 2 H CSF Neutrophils % 0 CSF Lymphocytes % 73 CSF Monocytes % 27 CSF Glucose 64 CSF Total Protein 52.7 H Microbiology 06/06/18 12:37 Lumbar Puncture Gram Stain - Final - Imaging Impressions Lumbar Puncture Fluoroscopy 06/06/18 00:00 CONCLUSION: 1. Uncomplicated fluoroscopically guided lumbar puncture. Assessment and Plan - Assessment (1) Intractable headache Code(s): R51 - Headache Status: Acute (2) Nausea and vomiting Code(s): R11.2 - Nausea with vomiting, unspecified Status: Acute (3) History of hydrocephalus Code(s): Z86.69 - Personal history of other diseases of the nervous system and sense organs Status: Acute - Plan 43-year-old male admitted secondary to severe headache with history of hydrocephalus here for Acute headache-improved S/P LP History of chrionic ehadaches - Dr. Lehman ff - CSF fluid- appears benign - continue on his Elavil Nausea/vomiting _ Resolved Diarrhea- resolved tolerating po well Hypertension- good on no meds Continue baseline treatment Follow blood pressures Adjust treatments as needed Hyperlipidemia Continue present treatment Follow as an outpatient History of multiple cleft lip surgeries.revisions- ff by Dr. Coto as OP DVT prophylaxis SCDs- up and ambualte d/w sister- wants to see and speak with Dr Lehman before being discharged DC dome today ff up with Dr Lehman in 2 weeks Regular diet Activity as tolerated Meds- Elavil 75 mg hs (1) Intractable headache Qualifiers: Headache type: unspecified Headache chronicity pattern: acute headache Qualified Code(s): R51 - Headache (2) Nausea and vomiting Qualifiers: Vomiting type: unspecified Vomiting Intractability: intractable Qualified Code(s): R11.2 - Nausea with vomiting, unspecified
== END 2018-06-07 10:32 | disposition home or self-care (01) ==
LOC: NEDA 05:16 → NEPE 05:16 → NEPGCP 14:42
PROVIDERS: ADMIT Internal Medicine; ATTEND Internal Medicine
DX: F32.9 Major depressive disorder, single episode, unspecified; Z87.442 Personal history of urinary calculi; I10 Essential (primary) hypertension; Z88.0 Allergy status to penicillin; J44.9 Chronic obstructive pulmonary disease, unspecified; E78.5 Hyperlipidemia, unspecified; R19.7 Diarrhea, unspecified; Z86.69 Personal history of other diseases of the nervous system and sense organs; R51 Headache; R11.2 Nausea with vomiting, unspecified; E86.0 Dehydration; R10.9 Unspecified abdominal pain; F79 Unspecified intellectual disabilities; E78.00 Pure hypercholesterolemia, unspecified; Z87.730 Personal history of (corrected) cleft lip and palate; G47.30 Sleep apnea, unspecified